=== PATIENT | male | born 2000 | race Caucasian/White ===

== ENCOUNTER 2024-09-29 17:40 | Emergency (ER) | payer BC ==
[~2024-09-29] VITALS: Ht 182.9 cm; Wt 86.2 kg
[2024-09-29 17:52] VITALS: PULSE 106; RESP 17; TEMP 98.4
[2024-09-29] MEDS ORDERED: Morphine 4mg INJECTION 4 MG/ML INJ IV ONE (18:45)
[2024-09-29 19:04] LABS: BASOPHILS % 0.4 % (0.0-1.0); EOSINOPHILS % 0.2 % (0.0-6.0); LYMPHOCYTES % 13.9 % (18.0-39.1); MONOCYTES % 6.5 % (4.4-11.3); NEUTROPHILS % 78.6 % (38.7-80.0); RED CELL DISTRIBUTION WIDTH 12.3 % (11.7-14.4)
[2024-09-29 19:28] LABS: EST GLOMERULAR FILTRATION RATE 116.0 ML/MIN (>=60)
[2024-09-29 20:11] VITALS: BP 165/109; O2SAT 100
== END 2024-09-29 20:12 | disposition other institution (70) ==
LOC: ER 18:14
DX: R33.9 Retention of urine, unspecified (principal)
CPT/HCPCS: 36415; 80053; 85025; 99284